=== PATIENT | male | born 1985 ===

== ENCOUNTER 2018-08-25 11:20 | Outpatient (REF) | payer SELFPAY ==
[2018-08-31 13:17] LABS: Helicobacter pylori Ag, Feces Positive (NEGAT)
== END 2018-08-25 11:40 ==
LOC: NCHCN 11:20
PROVIDERS: PCP Nurse Practitioner Family; Visit Provider Nurse Practitioner Family
DX: R10.13 Epigastric pain (principal)
CPT/HCPCS: 87338